=== PATIENT | female | born 1970 | race Caucasian/White ===

== ENCOUNTER 2019-08-19 20:10 | Emergency (ER) | payer OTHER, SELFPAY ==
[2019-08-19 20:20] VITALS: BP 140/89; PULSE 100; RESP 18; O2SAT 100
--- NOTE | 2019-08-19 20:24 | DI.RAD.S_ITS ---
PROCEDURE: XR SHOULDER RT MIN 2V INDICATIONS: injured it 2 weeks ago lifting heavy object TECHNIQUE: 3 views of the shoulder were acquired. COMPARISON: None. FINDINGS: Bones: No fractures or dislocations. No suspicious bony lesions. Visualized ribs appear intact. Soft tissues: No suspicious soft tissue calcifications. IMPRESSION: Intact left shoulder. Dictated by: Landy Ott M.D. on 08/19/2019 at 21:23 Approved by: Landy Ott M.D. on 08/19/2019 at 21:23
--- NOTE | 2019-08-19 21:26 | ED.UPPEXIN ---
HPI - Extremity Injury (Upper) General Chief Complaint: Extremity Injury, Upper Stated Complaint: LEFT ARM PAIN Time Seen by Provider: 08/19/19 21:26 Source: patient Mode of arrival: Ambulatory Limitations: no limitations History of Present Illness HPI narrative: The patient injured her right shoulder about 3 weeks ago. She was helping a much taller friend lift a large plasma TV. She has pain shooting down the right anterior/lateral upper arm. She has no back pain, no clavicle pain. The pain shoots in the upper arm, not into the forearm or hand. She is right-hand dominant. 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 There is no axillary pain. Related Data Allergies Allergy/AdvReac Type Severity Reaction Status Date / Time No Known Drug Allergies Allergy Verified 08/19/19 21:43 Review of Systems Constitutional Constitutional: Denies weakness Musculoskeletal Musculoskeletal: Denies numbness Comments: Right upper arm pain is noted HPI. Integumentary/Breasts Skin/Breast: Denies erythema, Denies rash and Denies wounds Neurologic Neurologic: Denies numbness and Denies weakness Patient History Medical History (Updated 08/19/19 @ 21:47 by Brady Lora MD) Depression (Acute) alcohol intake frequency: a few times a month Substance Use Type: does not use Exam Initial Vital Signs Initial Vital Signs: Vital Signs Pulse Rate 100 H 08/19/19 20:20 Respiratory Rate 18 08/19/19 20:20 Blood Pressure 140/89 08/19/19 20:20 Pulse Oximetry 100 08/19/19 20:20 Const General: cooperative and well developed Nutritional Appearance: well nourished Skin General: no rashes or lesions noted Neuro General: patient alert, patient oriented x3 and no focal motor deficits Sensory Exam: no sensory deficits noted Extrem General: full ROM, no clubbing, cyanosis or edema, no pedal edema and no calf tenderness Other: Full range of motion the right shoulder without laxity or tenderness. Shooting pain into the right distal deltoid with palpation. Pain increases with abduction. There is no palpable bony or muscle defect. Biceps function is normal without weakness. She has full range of motion in the right elbow, there is no numbness or weakness in the right hand. Course Course Course Narrative: The patient was placed in a right sling for comfort. She is advised use Advil or Tylenol, and limit lifting. She should be evaluated in 3 weeks if not improved. Orders Ordered: ED Orders 08/19/19 20:24 XR shoulder RT min 2V Stat Vital Signs Vital signs: Vital Signs - 8 hr 08/19/19 20:20 Pulse Rate 100 H Respiratory Rate 18 Blood Pressure 140/89 Pulse Oximetry 100 MDM - Extremity Injury (Upper) Imaging Data Right shoulder x-ray: Radiologist's Impression: No acute findings Discharge Plan Departure Patient Disposition: Home Clinical Impression: Strain of right deltoid muscle Qualifiers: Encounter type: initial encounter Qualified Code(s): S46.811A - Strain of other muscles, fascia and tendons at shoulder and upper arm level, right arm, initial encounter Instructions: DI for Muscle Strain Activity Restrictions/Additional Instructions: Tylenol or Advil as needed for pain. Use your right home for light activity, avoid heavy lifting. I will give you a sling for the arm for comfort when up and about. Recheck with your doctor in about 3 weeks if not improving, consider consultation with Physical therapy or Orthopedics if not improving.
[2019-08-19 21:51] VITALS: BP 135/78; PULSE 84; RESP 18; O2SAT 97
== END 2019-08-19 21:53 | disposition home or self-care (01) ==
PROVIDERS: Emergency Provider Emergency Medicine
DX: S46.811A Strain of other muscles, fascia and tendons at shoulder and upper arm level, right arm, initial encounter (principal); X50.0XXA Overexertion from strenuous movement or load, initial encounter
CPT/HCPCS: 73030; 99283